=== PATIENT | female | born 1945 | race Two or more races ===

== ENCOUNTER → 2016-12-19 | Outpatient (CLI) | payer OTHER ==
[~2016-12-19] MED LIST: ACID1TAB7 PO; AMIL1TAB PO; AMIO200T42 PO; AMOX1TAB64 PO; LEVO50TA5 PO; METO25TA91 PO; NAPR-850 PO; RIVA20TA PO
== END | disposition home or self-care (01) ==
LOC: CFH 13:17
PROVIDERS: ATTEND Family Medicine
DX: Z12.31 Encounter for screening mammogram for malignant neoplasm of breast (principal); M85.88 Other specified disorders of bone density and structure, other site; Z78.0 Asymptomatic menopausal state
CPT/HCPCS: 77080; G0202

== ENCOUNTER → 2017-07-01 | Outpatient (CLI) | payer OTHER | LOC: CVU 12:17 | PROVIDERS: ATTEND Internal Medicine Cardiovascular Disease | DX: K21.9 Gastro-esophageal reflux disease without esophagitis (principal); M79.89 Other specified soft tissue disorders; M79.662 Pain in left lower leg | CPT/HCPCS: 93971 ==